=== PATIENT | female | born 1960 | race Caucasian/White ===

== ENCOUNTER 2022-01-16 11:51 | Emergency (ER) | payer OTHER ==
[~2022-01-16] VITALS: Ht 157.5 cm; Wt 61.2 kg
[2022-01-16 11:53] VITALS: BP 170/101
--- NOTE | 2022-01-16 13:54 | NUR ---
DR ROGERS AT BEDSIDE EVALUATING PT
--- NOTE | 2022-01-16 15:06 | NUR ---
C COLLAR REMOVED PER DR BRISCOE
[2022-01-16] MEDS ORDERED: IBUP-426 PO (15:53)
[2022-01-16] MEDS ORDERED: ACET-8386 PO ×2 (15:54→15:56)
[2022-01-16 16:22] VITALS: BP 163/100
--- NOTE | 2022-01-16 16:22 | NUR ---
Patient discharged with v/s stable. Written and verbal after care instructions ABOUT [employer] given and explained. Patient alert, oriented and verbalized understanding of instructions. Ambulatory with steady gait. All questions addressed prior to discharge. ID band removed. Patient advised to follow up with PMD. Rx of NORCO 5-325 AND MOTRIN given. Patient educated on indication of medication including possible reaction and side effects. Opportunity to ask questions provided and answered.
== END 2022-01-16 16:22 | disposition home or self-care (01) ==
LOC: MED 11:51
DX: S16.1XXA Strain of muscle, fascia and tendon at neck level, initial encounter (principal); S39.012A Strain of muscle, fascia and tendon of lower back, initial encounter; V49.88XA Car occupant (driver) (passenger) injured in other specified transport accidents, initial encounter; Y93.89 Activity, other specified; Y92.89 Other specified places as the place of occurrence of the external cause; Y99.8 Other external cause status
CPT/HCPCS: 70450; 71045; 72125; 99284